=== PATIENT | female | born 1955 | race Caucasian/White ===

== ENCOUNTER 2016-03-30 23:10 | Inpatient (IN) | payer BC ==
[~2016-03-30] VITALS: Ht 175.3 cm; Wt 65.3 kg
[2016-03-30 23:59] VITALS: BP 111/62; PULSE 67; TEMP 97.6
[2016-03-31] MEDS ORDERED: LEXAPRO20 MG PO (00:28)
[2016-03-31] MEDS ORDERED: TOPAMAX50 MG PO (00:30)
[2016-03-31 04:28] VITALS: BP 94/54; PULSE 66; TEMP 97.7
[2016-03-31 08:32] VITALS: BP 95/53; PULSE 69; TEMP 97.6
[2016-03-31 08:53] LABS: ADJUSTED CALCIUM 8.5 mg/dL (8.4-10.2); ALBUMIN 3.1 gm/dL (3.5-5.0); BILIRUBIN,TOTAL 0.5 mg/dL (0.0-1.0); CALCIUM 7.8 mg/dL (8.4-10.2); CREATININE, serum 0.74 mg/dL (0.52-1.25); POTASSIUM 3.8 mmol/L (3.4-5.0); TOTAL PROTEIN 6.3 gm/dL (6.4-8.2)
[2016-03-31 12:20] VITALS: BP 93/54; PULSE 66; TEMP 98.1
[2016-03-31 16:13] VITALS: BP 99/58; PULSE 66; TEMP 98.3
[2016-03-31 20:18] VITALS: BP 98/49; PULSE 71; TEMP 98.8
[2016-04-01] VITALS (8 sets, daily range): BP systolic 97–118; BP diastolic 51–253; PULSE 56–70; TEMP 97.8–98.8
[2016-04-01 02:39] LABS: INFLUENZA B NEGATIVE
[2016-04-01 08:23] LABS: BASO % 0.2 % (0.0-2.0); EOS % 0.2 % (0-4.0); GRAN # 2.6 (1.4-6.5); GRAN % 57.7 % (42.2-75.2); LYMPH # 1.5 (1.2-3.4); LYMPH % 33.6 % (20.0-51.0); MEAN CELL VOLUME 103 fl (80.0-100.0); MEAN CORPUSCULAR HGB CONC 32 g/dl (33.0-37.0); MEAN PLATELET VOLUME 11.3 fl (7.4-10.4); MONO # 0.4 (0.1-0.6); MONO % 8.1 % (1.7-9.3); PLATELET COUNT 141 K/mm3 (130-400); RED BLOOD COUNT 3.37 M/mm3 (4.10-5.30); REDCELL DISTRIBUTION WIDTH-CV 12.5 % (11.5-14.5); WHITE BLOOD COUNT 4.5 K/mm3 (4.8-10.8)
[2016-04-01 08:24] LABS: HEMATOCRIT 34.7 % (37.0-47.0); MEAN CORPUSCULAR HEMOGLOBIN 33 pg (27.0-31.0)
[2016-04-01 09:02] LABS: ADJUSTED CALCIUM 8.9 mg/dL (8.4-10.2); ALBUMIN 2.8 gm/dL (3.5-5.0); BILIRUBIN,TOTAL 0.4 mg/dL (0.0-1.0); CALCIUM 7.9 mg/dL (8.4-10.2); CREATININE, serum 0.68 mg/dL (0.52-1.25); POTASSIUM 3.5 mmol/L (3.4-5.0); TOTAL PROTEIN 5.7 gm/dL (6.4-8.2)
[2016-04-02] VITALS (9 sets, daily range): BP systolic 108–136; BP diastolic 48–62; PULSE 54–67; TEMP 97.4–98.8
[2016-04-03 04:38] VITALS: BP 105/56; PULSE 58; TEMP 98.6
[2016-04-03 07:35] VITALS: BP 112/58; PULSE 58; TEMP 98.7
[2016-04-03 08:28] LABS: ADJUSTED CALCIUM 9.2 mg/dL (8.4-10.2); ALBUMIN 2.8 gm/dL (3.5-5.0); BILIRUBIN,TOTAL 0.5 mg/dL (0.0-1.0); CALCIUM 8.2 mg/dL (8.4-10.2); CREATININE, serum 0.67 mg/dL (0.52-1.25); TOTAL PROTEIN 5.7 gm/dL (6.4-8.2)
[2016-04-03 08:47] LABS: POTASSIUM 2.9 mmol/L (3.4-5.0)
[2016-04-03] MEDS ORDERED: FLONASEALLERGY NS (10:10)
[2016-04-03 11:01] VITALS: BP 116/61; PULSE 62; TEMP 98.3
[2016-04-03 15:48] LABS: CALCIUM 8.6 mg/dL (8.4-10.2); CREATININE, serum 0.65 mg/dL (0.52-1.25); POTASSIUM 3.9 mmol/L (3.4-5.0)
[2016-04-03] MEDS ORDERED: ZOFRAN 4MG T4 MG/TAB PO (16:17)
== END 2016-04-03 17:03 | disposition home or self-care (01) | DRG 444 ==
LOC: MEDICAL 23:10
PROVIDERS: Family Medicine; Internal Medicine; Internal Medicine Gastroenterology; Nurse Practitioner Family
PROC: 0FC98ZZ Extirpation of Matter from Common Bile Duct, Via Natural or Artificial Opening Endoscopic (ICD-10-PCS; principal; 2016-04-02 14:45)
DX: K80.51 Calculus of bile duct without cholangitis or cholecystitis with obstruction (principal); K85.90 Acute pancreatitis without necrosis or infection, unspecified; E44.0 Moderate protein-calorie malnutrition; R19.7 Diarrhea, unspecified; E87.6 Hypokalemia; F17.210 Nicotine dependence, cigarettes, uncomplicated; G43.909 Migraine, unspecified, not intractable, without status migrainosus
CPT/HCPCS: 99222-AI; 99232-AI; 99239; C1769; J1170; J1610; J1650; J2250; J2405; J2704; J7030